=== PATIENT | female | born 1925 | race Caucasian/White ===

== ENCOUNTER → 2016-10-29 | Outpatient (CLI) | payer MEDICARE, BC ==
[~2016-10-29] MED LIST: ACET-1770 PO; ALLO100T PO; AMLO2.5T PO; ASPI-557 PO; BETH10TA PO; CARV3.123 PO; CEPH-583 PO; DONE10TA30 PO; FURO-153 PO; METF500T4 PO; METH5TAB6 PO; MICO56OI2 TOP; MULT1TAB69 PO; NAPR220T61 PO; OMEP-122 PO; POTA-81 PO; SERT50TA PO
== END ==
LOC: LABNH.PM 00:41
PROVIDERS: ATTEND Family Medicine
DX: Z79.899 Other long term (current) drug therapy (principal)
CPT/HCPCS: 36415; 84550; P9604

== ENCOUNTER → 2016-11-13 | Outpatient (CLI) | payer MEDICARE, BC ==
[2016-11-13 17:54] LABS: BLOOD, URINE TRACE-INTACT (NEGATIVE); COLOR,URINE YELLOW (YELLOW); LEUKOCYTE ESTERASE ,URINE 2+ (NEGATIVE); NITRITE,URINE NEGATIVE (NEGATIVE); UROBILINOGEN,URINE 0.2 EU/DL (NORMAL)
[2016-11-13 17:59] LABS: BACTERIA,URINE 2+ (NEGATIVE); RBC,URINE 0-1 /HPF (0-3)
[2016-11-13 18:00] LABS: SQUAMOUS EPITHELIAL CELL,UR >50; WBC CLUMPS,URINE FEW
== END ==
LOC: LABN.PM 17:46
PROVIDERS: ATTEND Family Medicine
DX: N39.0 Urinary tract infection, site not specified (principal); R82.90 Unspecified abnormal findings in urine; R82.99 Other abnormal findings in urine
CPT/HCPCS: 81001; 87077; 87086; 87186

== ENCOUNTER → 2016-12-02 | Outpatient (CLI) | payer MEDICARE, BC | LOC: LABNH.PM 00:50 | PROVIDERS: ATTEND Family Medicine | DX: R60.9 Edema, unspecified (principal) | CPT/HCPCS: 36415; 85379; P9604 ==

== ENCOUNTER → 2016-12-03 | Outpatient (CLI) | payer MEDICARE, BC ==
[2016-12-03 07:04] LABS: BASOPHILS # (AUTO) 0.1 T/MM3 (0-0.2); BASOPHILS % (AUTO) 1.2 % (0-2); EOSINOPHILS # (AUTO) 0.3 T/MM3 (0-0.5); EOSINOPHILS % (AUTO) 4.4 % (0-4); HCT - HEMATOCRIT 33.2 % (36-46); HGB - HEMOGLOBIN 10.6 GM/DL (12-16); IMMATURE GRANULOCYTE # (AUTO) 0.01 T/MM3 (0.00-0.03); IMMATURE GRANULOCYTE % (AUTO) 0.2 % (0.0-0.5); LYMPHOCYTES % (AUTO) 33.7 % (23-45); MEAN CORPUSCULAR HGB 30.1 UUG (26-34); MEAN CORPUSCULAR HGB CONC(MCHC 31.9 GM/DL (31-37); MEAN CORPUSCULAR VOLUME 94.3 UM3 (80-100); MEAN PLATELET VOLUME 10.9 UM3 (9.4-12.4); MONOCYTES # (AUTO) 0.5 T/MM3 (0-0.8); NEUTROPHILS % (AUTO) 51.5 % (33-66); RED BLOOD COUNT 3.52 M/MM3 (4.00-5.20); WBC - WHITE BLOOD COUNT 5.9 T/MM3 (4.5-11.0)
[2016-12-03 07:22] LABS: ANION GAP 13 MEQ/L (5-15); BUN/CREATININE RATIO 19 RATIO (6-26); CALCIUM 9.4 MG/DL (8.4-10.2); CHLORIDE 105 MEQ/L (98-107); CO2 - CARBON DIOXIDE 26 MEQ/L (22-30); GLOMERULAR FILTRATION RATE 52; GLUCOSE 100 MG/DL (65-110); POTASSIUM 3.6 MEQ/L (3.6-5); SODIUM 144 MEQ/L (134-144)
[2016-12-03 07:46] LABS: THYROID STIM HORMONE-TSH 3.65 MIU/L (0.47-4.68)
== END ==
LOC: LABNH.PM 00:37
PROVIDERS: ATTEND Family Medicine
DX: E03.9 Hypothyroidism, unspecified (principal); I10 Essential (primary) hypertension; R35.8 Other polyuria
CPT/HCPCS: 36415; 80048; 83880; 84443; 85025; P9604